=== PATIENT | male | born 1935 ===

== ENCOUNTER → 2023-09-07 10:40 | Outpatient (REF) | payer OTHER, SELFPAY | LOC: PET 10:40 | PROVIDERS: ATTENDING PHYSICIAN Specialist | DX: C61 Malignant neoplasm of prostate (principal) | CPT/HCPCS: 78815; A9552 ==

== ENCOUNTER 2024-06-25 01:58 | Emergency (ER) | payer OTHER, SELFPAY ==
[2024-06-25] VITALS (7 sets, daily range): BP systolic 126–163; BP diastolic 70–106; BMI 28.4
--- NOTE | 2024-06-25 02:19 | ED.GENMED ---
History of Present Illness
General
Chief Complaint: Urinary Symptoms
Source: patient and half-way
Exam Limitations: none
Time Seen by Provider: 06/25/24 02:17
Nursing documentation reviewed up to this point in time: agreed with
History of Present Illness
History of Present Illness:
89-year-old male past medical history of CAD, prostate cancer presenting to the emergency department today with concerns of urinary retention. They attempted to place a catheter at [facility] without success which prompted him to be sent
into the ER for treatment. Patient is currently on hospice. He is seeking catheter to help with symptoms at this point.
Past History
Past History
ED Past Medical History: CAD; Negative NIDDM
ED Past Surgical History: Cardiac
Social History
Tobacco: Non-smoker
Alcohol: None
Drug: None
Personal:
Living: with family
Employment: Retired
Family History
Family History: Other (nonContributory)
Review of Systems
Review of Systems
Allergies reviewed?: Yes
All Other Systems: ROS reviewed and negative except as documented in HPI and ROS
Phy Exam
Physical Exam
Physical Exam:
GENERAL: Alert , in no apparent distress
EYE: pupils equal and reactive
NECK: Supple, no significant adenopathy.
ENT: o/p clr, mmm.
CARDIAC: Regular rate and rhythm .
LUNGS: Clear breath sounds bilaterally, no acute respiratory distress, no wheezes/rales/rhonchi
ABDOMEN: Soft, without focal tenderness, no r/g, no cvat
NEUROLOGICAL: Alert and oriented, no focal neuro deficits
SKIN: Warm and dry, skin intact.
MUSCULOSKELETAL: No edema, well perfused.
PSYCH: Normal and appropriate interaction.
Course
Orders/Labs/Results
Orders:
Orders
06/25/24 02:22
Siddiqui Placement- Treatment ONCE
Reason for insertion: Acute Retention
06/25/24 02:58
HYDROmorphone [Dilaudid] 2 mg PO NOW STA
06/25/24 07:06
HYDROmorphone [Dilaudid] 4 mg PO NOW STA
06/25/24 07:46
HYDROmorphone [Dilaudid] 2 mg .ROUTE .STK-MED ONE
06/25/24 07:47
HYDROmorphone [Dilaudid] 2 mg PO NOW STA
06/25/24 08:08
Famotidine [Pepcid] 40 mg PO NOW STA
06/25/24 08:09
Finasteride [Proscar] 5 mg PO NOW STA
06/25/24 08:11
Dexamethasone [Decadron] 4 mg PO NOW STA
06/25/24 08:12
Losartan [Cozaar] 25 mg PO NOW STA
06/25/24 08:32
Celecoxib [Celebrex] 400 mg PO NOW STA
Vital Signs
Initial and Last Documented VS:
Initial Vital Signs
Temp Pulse Resp BP Pulse Ox
97.6 F 87 24 163/83 97
06/25/24 02:01 06/25/24 02:01 06/25/24 02:01 06/25/24 02:01 06/25/24 02:01
Last Documented Vital Signs
Temp Pulse Resp BP Pulse Ox
97.6 F 95 18 126/74 95
06/25/24 02:01 06/25/24 09:15 06/25/24 09:15 06/25/24 09:00 06/25/24 09:15
Procedures
Urinary Catheter
Procedure completed by: Myself
Type of urinary catheter: indwelling catheter
Catheter size (chinese): 14
Urine description: yellow
Urine output (ml): 500
MDM/Problems Addressed
MDM/Problems Addressed:
89-year-old male presenting to the emergency department with concerns of urinary retention. Has a history of prostate cancer. Usually self caths but unable to at home today. Unable to get catheterized his nursing facility either which required
him to come to the ER today. Here we are we were able to place a 14 Albanian coud� catheter. Urine was draining without difficulty stable for discharge at this time. Patient is not seeking any additional treatment or any consideration of
antibiotics thus urinalysis was not sent. Patient is currently on hospice.
*Critical Care Note
Total Time (30-74mins, 75-104mins- exclusive of procedures): Not Applicable
ED Attending Note
-
Portions of this chart may have been created with voice recognition software.� Occasional wrong word or��sound alike� substitutions may have occurred due to the inherent limitations of voice recognition software.
Discharge Plan
Departure
Patient Disposition: Home (Routine Discharge)
Date of Disposition: 06/25/24
Time of Disposition: 02:57
Patient with high blood pressure during this ER visit?: No
Condition: Good
Covid-19: Not Applicable
Discharge Problem:
Acute urinary retention
Instructions: Urinary retention
Prescriptions:
No Action
rosuvastatin 10 mg tablet
10 mg PO QPM
nitroglycerin [Nitrostat] 0.4 mg Tablet, Sublingual
0.4 mg SUBLINGUAL Q5MPRN PRN (Reason: CHEST PAIN)
coQ10 (ubiquinol) 200 mg Capsule
200 mg PO DAILY
Glucosamine Chondroitin 550-30-1 mg Capsule
1 cap PO BID
famotidine 40 mg Tablet
40 mg PO DAILY
amlodipine 2.5 mg Tablet
2.5 mg PO DAILY
hydromorphone 2 mg Tablet
2 mg PO Q4H PRN (Reason: pain)
dexamethasone 4 mg Tablet
4 mg PO BID
losartan 25 mg Tablet
25 mg PO DAILY
finasteride 5 mg Tablet
5 mg PO DAILY
celecoxib 400 mg Capsule
400 mg PO DAILY
Erleada 60 mg Tablet
240 mg PO DAILY
Gemtesa 75 mg Tablet
75 mg PO DAILY
aspirin 81 mg Capsule
81 mg PO HS
Referrals:
Cristóbal Glover, [Family Provider] -
Activity Restrictions/Additional Instructions:
You came to the emergency department today with concerns of urinary retention. We placed a 14 Albanian Siddiqui catheter. Please leave this in place and follow-up closely with urology. Return for any worsening, new or concerning symptoms.
Interventions
Interventions:
*Risk Screen - Suicide Last Done: 06/25/24 02:01
*General Assessment Last Done: 06/25/24 02:01
*Neglect/Abuse Screening Last Done: 06/25/24 02:01
*ED- Fall Risk Assessment Last Done: 06/25/24 09:35
*ED COVID-19 Vaccine History Last Done: 06/25/24 02:09
*Nursing Disposition Last Done: 06/25/24 09:35
ED-Male Genitourinary Assessment Last Done: 06/25/24 02:25
Discharge Date and Time
Discharge Date/Time: 06/25/24 09:38
Print Language: SOUTH AFRICAN
[2024-06-25] MEDS: DILAUDID 2 MG PO ×2 (03:57→07:53)
[2024-06-25] MEDS: DECADRON 4 MG PO (08:37)
[2024-06-25] MEDS: COZAAR 25 MG PO (08:37)
[2024-06-25] MEDS: PEPCID 40 MG PO (08:37)
[2024-06-25] MEDS: PROSCAR 5 MG PO (08:37)
[2024-06-25] MEDS: CELEBREX 400 MG PO (09:29)
== END 2024-06-25 09:38 | disposition home or self-care (01) ==
LOC: EMR 01:58
PROVIDERS: EMERGENCY PHYSICIAN Emergency Medicine; FAMILY PHYSICIAN Family Medicine
DX: R33.9 Retention of urine, unspecified (principal); I25.10 Atherosclerotic heart disease of native coronary artery without angina pectoris
CPT/HCPCS: 99283; 51702

== ENCOUNTER 2024-06-30 11:20 | Emergency (ER) | payer OTHER, SELFPAY ==
[2024-06-30 11:24] VITALS: BP 94/50
[2024-06-30] MEDS: DILAUDID 2 MG PO (12:14)
[2024-06-30 12:55] VITALS: BP 75/54
--- NOTE | 2024-06-30 14:17 | ED.GENMED ---
History of Present Illness
General
Chief Complaint: Catheter/Tube Problem
Source: patient, spouse and family
Time Seen by Provider: 06/30/24 11:54
History of Present Illness
History of Present Illness:
89-year-old male with a history of metastatic prostate cancer on hospice who presents for evaluation of his catheter that is not draining well. He recently used a straight cath but recently catheter the patient notes that he had it irrigated but
now is having pain and daughter states that it has not been draining well. No noted fevers. Again it is noted that he is on hospice. Patient does report discomfort in the lower abdomen but also like he is not able to be sharp mentally.
states that he has been getting 2 to 4 mg of Dilaudid by mouth
Past History
Past History
ED Past Medical History: CAD and Other (Metastatic prostate cancer, coronary disease, pilonidal cyst, 'lung mass'.)
ED Past Surgical History: Cardiac and Urological
Social History
Tobacco: Non-smoker
Alcohol: None
Drug: None
Personal:
Living: with family
Employment: Retired
Family History
Family History: Other (nonContributory)
Phy Exam
Physical Exam
Physical Exam:
CONSTITUTIONAL Patient alert and oriented to person, place and time. Vital signs reviewed.
HEAD atraumatic, normocephalic.
EYES eyelids normal to inspection, Extraocular muscles intact, Conjunctiva normal, Sclera normal.
NECK normal range of motion, Trachea midline, no jugular venous distention.
RESPIRATORY CHEST No respiratory distress noted, Chest expansion equal
ABDOMEN moderate lower abdominal distention, moderate tenderness, bladder palpable
UPPER EXTREMITY range of motion normal, Motor strength normal, no cyanosis, no edema.
LOWER EXTREMITY range of motion normal, Motor strength normal, no cyanosis, no edema.
NEURO Speech normal, No focal motor deficits, Janett coma scale 15, Memory normal, Cranial Nerves intact to screening exam.
SKIN skin pale and slightly diaphoretic
Course
Orders/Labs/Results
Orders:
Orders
06/30/24 12:07
HYDROmorphone [Dilaudid] 2 mg PO NOW STA
06/30/24 13:22
Lidocaine 2% [Lidocaine Uro-Jet 2%] 1 syringe .ROUTE .STK-MED ONE
Vital Signs
Initial and Last Documented VS:
Initial Vital Signs
Temp Pulse Resp BP Pulse Ox
98.2 F 110 20 94/50 93
06/30/24 11:24 06/30/24 11:24 06/30/24 11:24 06/30/24 11:24 06/30/24 11:24
Last Documented Vital Signs
Temp Pulse Resp BP Pulse Ox
98.2 F 99 20 75/54 95
06/30/24 11:24 06/30/24 12:55 06/30/24 12:55 06/30/24 12:55 06/30/24 12:55
MDM/Problems Addressed
MDM/Problems Addressed:
Metastatic prostate cancer, urinary retention, hematuria, urinary tract fraction, suspected sepsis
*Pulse Oximetry
Patient hypoxic: no
*Critical Care Note
Total Time (30-74mins, 75-104mins- exclusive of procedures): 40 minutes
Data Reviewed
Source: patient and family
Prescriptions/Medications Considered But Not Given:
Considered antibiotics but patient is on hospice and after lengthy discussion declines further medical care
Patient Management
Escalation/DeEscalation of care consider admission/obs:
Multiple lengthy discussions with patient, and daughter. Patient fortunately suffered from end-stage metastatic prostate cancer. He is hypotensive. SPECT he is septic from a urinary source as his urine is malodorous. After lengthy
discussion, they would like to continue on hospice with just comfort measures only. The patient himself states that he would like to have the focus to be on comfort only. He is much more comfortable after Siddiqui catheter placed. He has been
getting oral Dilaudid and his dose was given here in the emergency department. They also would like to go back to his facility where they have been caring for him on hospice. I think this is all reasonable based on the patient's wishes.
ED Attending Note
-
Portions of this chart may have been created with voice recognition software.� Occasional wrong word or��sound alike� substitutions may have occurred due to the inherent limitations of voice recognition software.
Discharge Plan
Departure
Patient Disposition: Home (Routine Discharge)
Date of Disposition: 06/30/24
Time of Disposition: 14:17
Patient with high blood pressure during this ER visit?: No
Discharge Problem:
Suspected sepsis, Hematuria, Urinary tract infection
Instructions: How to Care for Your Siddiqui Catheter, Male
Prescriptions:
No Action
rosuvastatin 10 mg tablet
10 mg PO QPM
nitroglycerin [Nitrostat] 0.4 mg Tablet, Sublingual
0.4 mg SUBLINGUAL Q5MPRN PRN (Reason: CHEST PAIN)
coQ10 (ubiquinol) 200 mg Capsule
200 mg PO DAILY
Glucosamine Chondroitin 550-30-1 mg Capsule
1 cap PO BID
famotidine 40 mg Tablet
40 mg PO DAILY
amlodipine 2.5 mg Tablet
2.5 mg PO DAILY
hydromorphone 2 mg Tablet
2 mg PO Q4H PRN (Reason: pain)
dexamethasone 4 mg Tablet
4 mg PO BID
losartan 25 mg Tablet
25 mg PO DAILY
finasteride 5 mg Tablet
5 mg PO DAILY
celecoxib 400 mg Capsule
400 mg PO DAILY
Erleada 60 mg Tablet
240 mg PO DAILY
Gemtesa 75 mg Tablet
75 mg PO DAILY
aspirin 81 mg Capsule
81 mg PO HS
Referrals:
Nay Baumann MD [Family Provider] -
Activity Restrictions/Additional Instructions:
Please continue your comfort measures on your hospice program. Please have your nurse irrigate your Siddiqui once per shift to ensure continuous drainage.
Interventions
Interventions:
*General Assessment Last Done: 06/30/24 11:24
SQ-Cjycxh-Qdrotzmbzk Assessment Last Done: 06/30/24 11:48
ED-Male Genitourinary Assessment Last Done: 06/30/24 11:48
Discharge Date and Time
Print Language: NIGERIAN
== END 2024-06-30 15:39 | disposition home or self-care (01) ==
LOC: EMR 11:20
PROVIDERS: EMERGENCY PHYSICIAN Emergency Medicine; FAMILY PHYSICIAN Family Medicine
DX: Z46.6 Encounter for fitting and adjustment of urinary device (principal); I25.10 Atherosclerotic heart disease of native coronary artery without angina pectoris; C61 Malignant neoplasm of prostate; C79.9 Secondary malignant neoplasm of unspecified site; Z51.5 Encounter for palliative care
CPT/HCPCS: 51702; 99283